=== PATIENT | female | born 1985 | race Caucasian/White ===

== ENCOUNTER 2017-04-19 15:08 | Emergency (ER) | payer OTHER ==
[2017-04-19 15:25] VITALS: RESP 18
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
--- NOTE | 2017-04-19 15:48 | XR ---
EXAMINATION TYPE: XR Hip RT and AP Pelvis DATE OF EXAM: 04/19/2017 COMPARISON: NONE HISTORY: Groin pain TECHNIQUE: A single AP view of the pelvis is obtained. Two views of the right hip are obtained. FINDINGS: The pelvic ring is intact. Proximal right femur and hip joint appear normal. Sacroiliac christina nts appear normal. IMPRESSION: Normal pelvis and right hip exam.
--- NOTE | 2017-04-19 15:49 | XR ---
EXAMINATION TYPE: XR tibia fibula RT DATE OF EXAM: 04/19/2017 COMPARISON: None HISTORY: Pain TECHNIQUE: 3 views FINDINGS: There is some soft tissue swelling over the anterior proximal tibia. I see no fracture nor dislocation. Knee joint and ankle joint appear intact. IMPRESSION: Soft tissue swelling. No fracture.
[2017-04-19] MEDS ORDERED: IBUPROFEN 600 MG STARTER PACK 4 TAB BTL PO STA (16:31)
[2017-04-19 16:58] VITALS: BP 155/83; PULSE 89; TEMP 98.8
== END 2017-04-19 17:01 | disposition home or self-care (01) ==
LOC: EC 15:08
DX: S73.101A Unspecified sprain of right hip, initial encounter (principal); S80.11XA Contusion of right lower leg, initial encounter; Z88.2 Allergy status to sulfonamides; Z88.7 Allergy status to serum and vaccine; Z79.899 Other long term (current) drug therapy; V43.62XA Car passenger injured in collision with other type car in traffic accident, initial encounter; Y92.410 Unspecified street and highway as the place of occurrence of the external cause
CPT/HCPCS: 73502; 99284